=== PATIENT | male | born 1975 | race Caucasian/White ===

== ENCOUNTER → 2017-01-24 | Outpatient (CLI) | payer BC, OTHER ==
[2017-01-24 08:37] LABS: ALANINE AMINOTRANSFERASE 41 U/L (16-63); ASPARTATE AMINOTRANSFERASE 19 U/L (15-37)
[2017-01-25 22:09] LABS: HEPATITIS B SURFACE AB Reactive (.); HEPATITIS B SURFACE AG Negative (Negative)
== END | disposition home or self-care (01) ==
LOC: LAB 07:24
DX: Z00.00 Encounter for general adult medical examination without abnormal findings (principal)
CPT/HCPCS: 36415; 84450; 84460; 86706; 87340

== ENCOUNTER 2018-07-12 08:05 | Outpatient (CLI) | payer BC, OTHER ==
[2018-07-12 08:41] LABS: BASOPHILS # (AUTO) 0.1 K/uL (0.0-8.0); BASOPHILS % (AUTO) 0.7 % (0.0-2.0); EOSINOPHILS # (AUTO) 0.3 K/uL (0.0-0.7); EOSINOPHILS % (AUTO) 3.9 % (0.0-7.0); HEMATOCRIT 45.1 % (36.7-47.1); HEMOGLOBIN 15.6 g/dL (12.5-16.3); LYMPHOCYTES # (AUTO) 2.5 K/uL (20.0-40.0); LYMPHOCYTES % (AUTO) 33.7 % (20.5-51.5); MEAN CORPUSCULAR HGB CONC 35 g/dL (32.5-36.3); MEAN CORPUSCULAR VOLUME 89.6 fL (73.0-96.2); MONOCYTES # (AUTO) 0.5 K/uL (2.0-10.0); MONOCYTES % (AUTO) 7.1 % (0.0-11.0); NEUTROPHILS # (AUTO) 4.1 K/uL (1.8-8.9); NEUTROPHILS % (AUTO) 54.6 % (38.5-71.5); PLATELET COUNT (AUTO) 226 K/uL (152-348); RED BLOOD CELL COUNT(AUTO) 5.04 MIL/uL (4.06-5.63); WHITE BLOOD COUNT (AUTO) 7.4 K/uL (3.6-10.2)
[2018-07-12 08:42] LABS: *BILIRUBIN,URIN NEGATIVE (NEGATIVE); *BLOOD, URINE 1+ (NEGATIVE); *CLARITY,URINE CLEAR (CLEAR); *COLOR,URINE YELLOW (YELLOW); *KETONES,URINE NEGATIVE (NEGATIVE); *PROTEIN,URINE NEGATIVE (NEGATIVE); *UROBILINOGEN,URINE 0.2 E.U./dl (NORMAL); LEUKOCYTE ESTERASE ,URINE NEGATIVE (NEGATIVE); NITRITE, URINE NEGATIVE (NEGATIVE); PH,URINE 5.5 (5.0-8.0); UGLUCOSE NEGATIVE (NEGATIVE)
[2018-07-12 08:50] LABS: BACTERIA,URINE NONE SEEN /HPF (NONE SEEN); SQUAMOUS EPITHELIAL CELL,UR FEW /HPF (NONE SEEN); WBC,URINE 0-3 /HPF (0-3)
[2018-07-12 09:29] LABS: BILIRUBIN,TOTAL 0.9 mg/dL (0.2-1.0); CREATININE 1.2 mg/dL (0.6-1.3); POTASSIUM 4.1 mmol/L (3.5-5.1); TOTAL PROTEIN, SERUM 8.5 g/dL (6.4-8.2)
[2018-07-12 09:49] LABS: THYROID STIMULATING HORMONE 1.611 mIU/mL (0.358-3.740)
== END 2018-07-12 23:59 | disposition home or self-care (01) ==
LOC: LAB 08:05
PROVIDERS: ATTEND Internal Medicine
DX: R42 Dizziness and giddiness (principal)
CPT/HCPCS: 36415; 84443; 85025; 86706

== ENCOUNTER 2019-06-27 07:07 | Outpatient (CLI) | payer BC, OTHER ==
[2019-06-27 11:10] LABS: BASOPHILS % (AUTO) 0.7 % (0.0-2.0); EOSINOPHILS # (AUTO) 0.2 K/uL (0.0-0.7); EOSINOPHILS % (AUTO) 3.1 % (0.0-7.0); HEMATOCRIT 45.5 % (36.7-47.1); HEMOGLOBIN 15.3 g/dL (12.5-16.3); LYMPHOCYTES # (AUTO) 2.2 K/uL (20.0-40.0); LYMPHOCYTES % (AUTO) 33.9 % (20.5-51.5); MEAN CORPUSCULAR HEMOGLOBIN 30.4 uug (23.8-33.4); MEAN CORPUSCULAR HGB CONC 34 g/dL (32.5-36.3); MEAN CORPUSCULAR VOLUME 90.5 fL (73.0-96.2); MONOCYTES # (AUTO) 0.6 K/uL (2.0-10.0); MONOCYTES % (AUTO) 8.7 % (0.0-11.0); NEUTROPHILS # (AUTO) 3.4 K/uL (1.8-8.9); NEUTROPHILS % (AUTO) 53.6 % (38.5-71.5); PLATELET COUNT (AUTO) 225 K/uL (152-348); RED BLOOD CELL COUNT(AUTO) 5.02 MIL/uL (4.06-5.63); WHITE BLOOD COUNT (AUTO) 6.4 K/uL (3.6-10.2)
[2019-06-27 11:18] LABS: BILIRUBIN,DIRECT 0.1 mg/dL (0.0-0.2); BILIRUBIN,TOTAL 0.9 mg/dL (0.2-1.0); CREATININE 1.1 mg/dL (0.6-1.3); POTASSIUM 4.1 mmol/L (3.5-5.1)
[2019-06-27 11:55] LABS: THYROID STIMULATING HORMONE 1.855 mIU/mL (0.358-3.740)
[2019-06-28 08:06] LABS: HEPATITIS B SURFACE AB Non Reactive (.); HEPATITIS B SURFACE AG Negative (Negative)
== END 2019-06-27 23:59 | disposition home or self-care (01) ==
LOC: LAB 07:07
PROVIDERS: ATTEND Internal Medicine Nephrology
DX: R53.83 Other fatigue (principal)
CPT/HCPCS: 36415; 84443; 85025; 86706; 87340